=== PATIENT | female | born 1950 | race Caucasian/White ===

== ENCOUNTER 2022-11-22 21:35 | Inpatient (IN) | payer OTHER ==
[~2022-11-22] VITALS: Ht 160 cm; Wt 56.7 kg
[2022-11-22] MEDS ORDERED: PEPCID AC20 MG PO (22:05)
--- NOTE | 2022-11-22 22:09 | NUR ---
SE RECIBE PTE ALERTA ORIENTADA X3 CON REFERIDO MEDICO DE DR.MORALES WOODSON PARA ADMISION DIRECTA POR DX DE ANEMIA.SE PHIL S/V Y SE UBICA.
[2022-11-25] MEDS ORDERED: PEPCID AC20 MG PO (17:41)
[2022-11-25] MEDS ORDERED: SPIRONOLACTONE50 MG PO (17:41)
[2022-11-25] MEDS ORDERED: PANTOPRAZOLE SO40 MG PO (17:42)
[2022-11-25] MEDS ORDERED: PEPTO-BISM262 MG/15 PO (17:43)
[2022-11-25] MEDS ORDERED: MAXFE CAPLET1 EAC1 PO (17:45)
== END 2022-11-25 18:31 | disposition home or self-care (01) | DRG 812 ==
LOC: ER 21:35 → EDBD 23:30 → SEC-K 23:30 → SURH 11-23 18:24
PROVIDERS: ADMIT Internal Medicine Hematology & Oncology; ATTEND Internal Medicine Hematology & Oncology
PROC: BW21ZZZ Computerized Tomography (CT Scan) of Abdomen and Pelvis (ICD-10-PCS; 2022-11-22)
PROC: B54DZZZ Ultrasonography of Bilateral Lower Extremity Veins (ICD-10-PCS; 2022-11-22)
PROC: 30233N1 Transfusion of Nonautologous Red Blood Cells into Peripheral Vein, Percutaneous Approach (ICD-10-PCS; principal; 2022-11-23)
DX: D64.9 Anemia, unspecified (principal); C16.2 Malignant neoplasm of body of stomach; A04.8 Other specified bacterial intestinal infections; D63.0 Anemia in neoplastic disease; E86.0 Dehydration

== ENCOUNTER 2023-02-23 22:30 | Inpatient (IN) | payer OTHER ==
[~2023-02-23] VITALS: Ht 160 cm; Wt 47.6 kg
[~2023-02-23 22:30] MED LIST: MAXFE CAPLET1 EAC1 PO; PANTOPRAZOLE SO40 MG PO; PEPCID AC20 MG PO; PEPTO-BISM262 MG/15 PO; SPIRONOLACTONE50 MG PO
--- NOTE | 2023-02-23 22:45 | NUR ---
PTE SE OBSERVA A/O X4. PTE VERBALIZA QUE VIENE PPOR ORDEN DEL DR ALLY WOODSON DEBIDO A ADVANCED GASTRIC CARCINOMA, SEVERE SYMPTOMATIC ANEMIA OF BLOOD LOST.
--- NOTE | 2023-02-24 00:30 | NUR ---
SE EDUCA PACIENTE SOBRE EL [place] MEDICO Y ESTA REFIER ENTENDER. SE CANALIZA X3 Y SE COLOCA IVF Y SE ADMINITRAN MEDS. SE PHIL MUESTRAS DE [place] Y SE ENVIAN. SE ENTREGA POTE DE ORINA. SE ENTRAN ORDENES DE ADMISION.
--- NOTE | 2023-02-24 00:50 | NUR ---
PACIENTE TRAJO FIRMADO EL PAPEL DE TRANSFUCION
== END 2023-02-25 14:52 | disposition home or self-care (01) | DRG 375 ==
LOC: ER 22:30 → SURH 02-24 00:07
PROVIDERS: ADMIT Internal Medicine Hematology & Oncology; ATTEND Internal Medicine Hematology & Oncology
PROC: 30233N1 Transfusion of Nonautologous Red Blood Cells into Peripheral Vein, Percutaneous Approach (ICD-10-PCS; principal; 2023-02-24)
DX: C16.2 Malignant neoplasm of body of stomach (principal); A04.8 Other specified bacterial intestinal infections; E44.0 Moderate protein-calorie malnutrition; E86.0 Dehydration; Z20.822 Contact with and (suspected) exposure to COVID-19; D63.0 Anemia in neoplastic disease

== ENCOUNTER 2023-04-06 18:49 | Inpatient (IN) | payer OTHER ==
[~2023-04-06] VITALS: Ht 160 cm; Wt 54.4 kg
--- NOTE | 2023-04-06 19:22 | NUR ---
SE RECIBE PTE ALERTA Y ORIENTADA X3 LA CUAL REFIERE TENER DOLOR ABDOMINAL, NAUSEAS Y DEBILIDAD
--- NOTE | 2023-04-06 21:07 | NUR ---
PACIENTE EVALUADA POR DR BADILLO QUIEN ORDENA TRATAMIENTO MEDICO, CHUYITA VIDES LE ORIENTA A PACIENTE SOBRE EL MISMO Y VERBALIZA ENTENDER VALERIO PACIENTE REHUSA SER CANALIZADA Y QUE LE COLOQUEN EL IV FLUIDS, SE LE ORIENTA SOBRE LA IMPORTANCIA DEL MISMO Y LA MISMA REHUSA. LE COLECTA MUESTRAS BAJO MEDIDAS ASEPTICAS.SE MANTIENE PACIENTE EN ESPERA DE RESULTADOS
--- NOTE | 2023-04-07 00:11 | NUR ---
SE REQUISAN DOS UNIDADES PRBCS COMPLETAS. SE RACHEL CONSENTIMIENTO DE TRANSFUCION FIRMADO POR PACIENTE Y DR. BADILLO. PERSONAL DE [place] INDICA QUE EL PACIENTE TIENE RECORD Y QUE SOLO HAY QUE MAU DOS TUBOS. SE KELSEY COPIAS D E LOS PAPELES DE LA REQUISICION EN EL RECORD DEL PACIENTE
== END 2023-04-09 11:31 | disposition home or self-care (01) | DRG 375 ==
LOC: ER 18:49 → MEDI 23:33
PROVIDERS: ADMIT Internal Medicine; ATTEND Internal Medicine
PROC: BW21ZZZ Computerized Tomography (CT Scan) of Abdomen and Pelvis (ICD-10-PCS; 2023-04-06)
PROC: 30233N1 Transfusion of Nonautologous Red Blood Cells into Peripheral Vein, Percutaneous Approach (ICD-10-PCS; principal; 2023-04-07)
DX: C16.2 Malignant neoplasm of body of stomach (principal); C78.7 Secondary malignant neoplasm of liver and intrahepatic bile duct; E44.0 Moderate protein-calorie malnutrition; E86.0 Dehydration; Z20.822 Contact with and (suspected) exposure to COVID-19; D63.0 Anemia in neoplastic disease

== ENCOUNTER 2023-05-07 11:55 | Inpatient (IN) | payer OTHER ==
[~2023-05-07] VITALS: Ht 160 cm; Wt 51.7 kg
--- NOTE | 2023-05-07 14:05 | NUR ---
PTE EVALUADA POR EL DR SAMUELS QUIENN ORDENA EL [place]. MR Jannie FANG OIRENTA SOBRE EL [place] ORDENADO, LO CUAL REFIERE ENTENDER, REALIZA PRUEBAS DE LABORATORIO Y ADMINISTRA MEDICAMENTOS [place] ORDEN MEDICA Y SIGUIENDO MEDIDAS ASEPTICAS.
--- NOTE | 2023-05-07 15:48 | NUR ---
SE RECIBE PACIENTE DEL TURNO ANTERIOR LA MISMA SE ENCUENTRA ALERTA Y ORIENTADA X3, SE LE ORIENTA A LA MISMA SOBRE CONTINUIDAD DE TRATAMIENTO Y VERBALIZA ENTENDER. SE OBSERVA PACIENTE EN CAMA CON BARANDAS ELEVADAS POR PRECAUCION A CAIDAS. SE OBSERVA PACIENTE RECIBIENDO IV FLUIDS [place] ORDEN. PENDIENTE ENTREGA DE U/A.
== END 2023-05-13 22:00 | disposition home or self-care (01) | DRG 392 ==
LOC: ER 11:55 → SEC-K 17:29 → MEDI 17:29
PROVIDERS: ADMIT Internal Medicine Hematology & Oncology; ATTEND Internal Medicine Hematology & Oncology
PROC: 8E0ZXY6 Isolation (ICD-10-PCS; principal; 2023-05-07)
DX: K29.00 Acute gastritis without bleeding (principal); E46 Unspecified protein-calorie malnutrition; C16.2 Malignant neoplasm of body of stomach; D64.81 Anemia due to antineoplastic chemotherapy; Z68.20 Body mass index [BMI] 20.0-20.9, adult; D53.0 Protein deficiency anemia; B96.81 Helicobacter pylori [H. pylori] as the cause of diseases classified elsewhere

== ENCOUNTER 2023-07-03 15:57 | Inpatient (IN) | payer OTHER ==
[~2023-07-03] VITALS: Ht 160 cm; Wt 47.6 kg
--- NOTE | 2023-07-03 16:43 | NUR ---
PACIENTE ALERTA Y ORIENTADA X [address] ALLY WOODSON PARA ADMISION POR NIVELES DE HEMOGLOBINA EN 7.8 Y HEMATOCRITO EN 23.1 DEL 07/01/23.
== END 2023-07-06 19:44 | disposition home or self-care (01) | DRG 812 ==
LOC: ER 15:57 → EDSTATUS 17:23 → MEDI 17:26 → SURH 17:27 → MEDJ 17:59 → SURH 18:19
PROVIDERS: ADMIT Internal Medicine Hematology & Oncology; ATTEND Internal Medicine Hematology & Oncology
PROC: 8E0ZXY6 Isolation (ICD-10-PCS; 2023-07-03)
PROC: 30233N1 Transfusion of Nonautologous Red Blood Cells into Peripheral Vein, Percutaneous Approach (ICD-10-PCS; principal; 2023-07-04)
DX: D64.81 Anemia due to antineoplastic chemotherapy (principal); C16.2 Malignant neoplasm of body of stomach; K92.1 Melena; Z68.1 Body mass index [BMI] 19.9 or less, adult; D63.0 Anemia in neoplastic disease; D53.0 Protein deficiency anemia

== ENCOUNTER 2023-07-24 19:04 | Emergency (ER) | payer OTHER ==
[~2023-07-24] VITALS: Ht 160 cm; Wt 40.8 kg
[2023-07-24] MEDS ORDERED: CARAFATE1 GM/10 ML (19:47)
[2023-07-24] MEDS ORDERED: PEPCID AC20 MG (19:47)
[2023-07-24] MEDS ORDERED: PROTONIX20 MG (19:47)
== END 2023-07-24 23:02 | disposition home or self-care (01) ==
LOC: ER 19:04
PROVIDERS: General Practice
DX: C16.9 Malignant neoplasm of stomach, unspecified (principal); D64.9 Anemia, unspecified; Z20.822 Contact with and (suspected) exposure to COVID-19; Z91.041 Radiographic dye allergy status; Z91.013 Allergy to seafood

== ENCOUNTER 2023-08-12 14:12 | Inpatient (IN) | payer OTHER ==
[~2023-08-12] VITALS: Ht 162.6 cm; Wt 54.4 kg
[~2023-08-12 14:12] MED LIST changes: +CARAFATE1 GM/10 ML; +PEPCID AC20 MG; +PROTONIX20 MG
--- NOTE | 2023-08-12 14:41 | NUR ---
PTE ALERTA Y ORIENTADA X3, REFIERE TENER ULCERAS SANGRANTES Y REFIERE HACE JÚNIOR SEMANA LA HEMOGLOBINA ESTABA EN 8.8. PTE DEL DR. WOODSON. SE PHIL SV Y SE UBICA. PTE REFIERE SENTIRSE DEBIL.
--- NOTE | 2023-08-12 16:53 | NUR ---
SE PHIL MUESTRAS DE LABORAOTRIO Y SE ENVIAN
[2023-08-12 17:23] LABS: MEAN CELL VOLUME 91.5 fL (80.00-100.00); MEAN CORPUSCULAR HGB CONC 34.7 g/dl (32.0-36.0); PLATELET COUNT 470 K/uL (150-450); RED BLOOD COUNT 2.49 M/uL (4.00-6.00)
[2023-08-12 17:35] LABS: INR 1.04; PARTIAL THROMBOPLASTIN TIME 22.8 SECONDS (22.0-34.0); PROTHROMBIN TIME 10.9 SECONDS (9.0-11.5)
[2023-08-12 17:45] LABS: HEMATOCRIT 22.8 % (36.0-45.00); MEAN CORPUSCULAR HEMOGLOBIN 31.7 pg (27.00-32.0)
[2023-08-12 17:46] LABS: HEMOGLOBIN 7.9 g/dL (12.0-15.00)
[2023-08-12 17:54] LABS: ALBUMIN 1.5 gm/dL (3.4-5.0); BILIRUBIN TOTAL 0.38 mg/dL (0.3-1.2); CALCIUM 7.6 mg/dL (8.5-10.1); CREATININE SERUM 0.48 mg/dL (0.55-1.02); GFR 127.13; GLOBULINA 3.2 G/DL (2.4-3.5); POTASSIUM 4.61 mEq/L (3.5-5.1); TOTAL PROTEIN 4.7 gm/dL (6.4-8.2)
--- NOTE | 2023-08-12 18:49 | NUR ---
SE REQUISA DOS UNIDADES [place] POR ORDEN MEDICA. PACIENTE FIRMA CONSENTIMIENTO DE TRANSFUCION. PERSONAL DE [place] DE [employer] INDICA QUE EL PACIENTE TIENE RECORD DEL PACIENTE
[2023-08-12 22:27] LABS: CKMB 1.4 NG/ML (0.5-3.6)
[2023-08-12 22:36] LABS: ABG PH 7.458 (7.35-7.45); ABG PO2 96.2 mmHg (80-100); ABG pCO2 33.3 mmHg (35-45); BASE EXCESS -0.1 mmol/l; SaO2 97.9 %; Tco2 24.1 mmol/l; allen test SATISFACTORY; o2 21 %; puncture site RADIAL RIGHT
[2023-08-13 12:21] LABS: INR 1.05; PARTIAL THROMBOPLASTIN TIME 25.9 SECONDS (22.0-34.0)
[2023-08-13 12:29] LABS: CKMB 1.5 NG/ML (0.5-3.6)
[2023-08-13 12:59] LABS: ALBUMIN 1.5 gm/dL (3.4-5.0); BILIRUBIN TOTAL 0.27 mg/dL (0.3-1.2); BILIRUBIN,CONJUGATED 0.16 mg/dL (0.0-0.2); BILIRUBIN,UNCONJUGATED 0.11 mg/dL (0.0-0.6); CALCIUM 7.6 mg/dL (8.5-10.1); CHOL HDL RATIO 3.4 (0-5.0); CREATININE SERUM 0.58 mg/dL (0.55-1.02); GFR 102.19; GLOBULINA 3.4 G/DL (2.4-3.5); POTASSIUM 3.51 mEq/L (3.5-5.1); TOTAL PROTEIN 4.9 gm/dL (6.4-8.2)
[2023-08-13 14:22] LABS: C-REACTIVE PROTEIN 1.91 MG/DL (0.00-0.29)
[2023-08-14 22:16] LABS: HEMOGLOBIN 11.5 g/dL (12.0-15.00); MEAN CELL VOLUME 91.1 fL (80.00-100.00); MEAN CORPUSCULAR HEMOGLOBIN 30.7 pg (27.00-32.0); MEAN CORPUSCULAR HGB CONC 33.7 g/dl (32.0-36.0); PLATELET COUNT 434 K/uL (150-450); RED BLOOD COUNT 3.73 M/uL (4.00-6.00); RED CELL DISTRIBUTION WIDTH 15.8 % (11.5-14.5)
[2023-08-15] MEDS ORDERED: FAMOTIDINE20 MG PO (10:54)
[2023-08-15] MEDS ORDERED: LASIX20 MG PO (10:56)
[2023-08-16 08:00] LABS: HEMATOCRIT 31.4 % (36.0-45.00); HEMOGLOBIN 10.5 g/dL (12.0-15.00); MEAN CELL VOLUME 91.3 fL (80.00-100.00); MEAN CORPUSCULAR HEMOGLOBIN 30.6 pg (27.00-32.0); MEAN CORPUSCULAR HGB CONC 33.5 g/dl (32.0-36.0); PLATELET COUNT 421 K/uL (150-450); RED BLOOD COUNT 3.44 M/uL (4.00-6.00); RED CELL DISTRIBUTION WIDTH 15.4 % (11.5-14.5)
[2023-08-17 12:30] LABS: HEMATOCRIT 46.2 % (36.0-45.00); HEMOGLOBIN 15.6 g/dL (12.0-15.00); MEAN CORPUSCULAR HEMOGLOBIN 30.4 pg (27.00-32.0); MEAN CORPUSCULAR HGB CONC 33.7 g/dl (32.0-36.0); PLATELET COUNT 414 K/uL (150-450); RED BLOOD COUNT 5.13 M/uL (4.00-6.00); RED CELL DISTRIBUTION WIDTH 15.7 % (11.5-14.5)
[2023-08-18 08:12] LABS: HEMATOCRIT 38.3 % (36.0-45.00); HEMOGLOBIN 13.1 g/dL (12.0-15.00); MEAN CELL VOLUME 89.9 fL (80.00-100.00); MEAN CORPUSCULAR HEMOGLOBIN 30.7 pg (27.00-32.0); MEAN CORPUSCULAR HGB CONC 34.1 g/dl (32.0-36.0); PLATELET COUNT 285 K/uL (150-450); RED BLOOD COUNT 4.26 M/uL (4.00-6.00); RED CELL DISTRIBUTION WIDTH 15.3 % (11.5-14.5)
== END 2023-08-18 14:02 | disposition home or self-care (01) | DRG 375 ==
LOC: ER 14:12 → SEC-K 22:11 → SURH 22:11
PROVIDERS: Emergency Medicine; General Practice; ADMIT Internal Medicine Hematology & Oncology; ATTEND Internal Medicine Hematology & Oncology
PROC: 30233N1 Transfusion of Nonautologous Red Blood Cells into Peripheral Vein, Percutaneous Approach (ICD-10-PCS; principal; 2023-08-13)
DX: C16.2 Malignant neoplasm of body of stomach (principal); D62 Acute posthemorrhagic anemia; E44.0 Moderate protein-calorie malnutrition; E86.0 Dehydration; D63.0 Anemia in neoplastic disease; Z20.822 Contact with and (suspected) exposure to COVID-19

== ENCOUNTER 2023-08-28 11:01 | Emergency (ER) | payer OTHER ==
[~2023-08-28] VITALS: Ht 160 cm; Wt 53.5 kg
[~2023-08-28 11:01] MED LIST changes: +FAMOTIDINE20 MG PO; +LASIX20 MG PO
[2023-08-28] MEDS ORDERED: PROTONIX20 MG PO (11:20)
[2023-08-28] MEDS ORDERED: CARAFATE1 GM PO (11:21)
[2023-08-28 12:34] LABS: HEMATOCRIT 33.5 % (36.0-45.00); HEMOGLOBIN 11.6 g/dL (12.0-15.00); MEAN CELL VOLUME 89.8 fL (80.00-100.00); MEAN CORPUSCULAR HGB CONC 34.5 g/dl (32.0-36.0); PLATELET COUNT 406 K/uL (150-450); RED BLOOD COUNT 3.73 M/uL (4.00-6.00); RED CELL DISTRIBUTION WIDTH 15.2 % (11.5-14.5)
[2023-08-28 12:54] LABS: ALBUMIN 1.6 gm/dL (3.4-5.0); BILIRUBIN TOTAL 0.48 mg/dL (0.3-1.2); CALCIUM 7.8 mg/dL (8.5-10.1); CREATININE SERUM 0.66 mg/dL (0.55-1.02); GFR 87.79; GLOBULINA 3.4 G/DL (2.4-3.5); POTASSIUM 4.44 mEq/L (3.5-5.1)
== END 2023-08-28 19:29 | disposition home or self-care (01) ==
LOC: ER 11:01
PROVIDERS: General Practice
DX: C16.9 Malignant neoplasm of stomach, unspecified (principal)

== ENCOUNTER 2023-08-30 12:57 | Emergency (ER) | payer OTHER ==
[~2023-08-30] VITALS: Ht 160 cm; Wt 53.5 kg
[~2023-08-30 12:57] MED LIST changes: +CARAFATE1 GM PO; +PROTONIX20 MG PO
[2023-08-30 16:37] LABS: HEMATOCRIT 29.9 % (36.0-45.00); HEMOGLOBIN 10.4 g/dL (12.0-15.00); MEAN CELL VOLUME 90.2 fL (80.00-100.00); MEAN CORPUSCULAR HEMOGLOBIN 31.3 pg (27.00-32.0); MEAN CORPUSCULAR HGB CONC 34.7 g/dl (32.0-36.0); PLATELET COUNT 346 K/uL (150-450); RED BLOOD COUNT 3.31 M/uL (4.00-6.00); RED CELL DISTRIBUTION WIDTH 15.5 % (11.5-14.5)
[2023-08-30 17:01] LABS: ALBUMIN 1.4 gm/dL (3.4-5.0); BILIRUBIN TOTAL 0.37 mg/dL (0.3-1.2); BILIRUBIN,CONJUGATED 0.23 mg/dL (0.0-0.2); BILIRUBIN,UNCONJUGATED 0.14 mg/dL (0.0-0.6); CALCIUM 7.4 mg/dL (8.5-10.1); CREATININE SERUM 0.72 mg/dL (0.55-1.02); GFR 79.4; POTASSIUM 3.92 mEq/L (3.5-5.1); TOTAL PROTEIN 4.4 gm/dL (6.4-8.2)
== END 2023-08-30 19:42 ==
LOC: ER 12:57
PROVIDERS: Nurse Practitioner Family
DX: C16.9 Malignant neoplasm of stomach, unspecified (principal)

== ENCOUNTER 2023-09-10 13:29 | Inpatient (IN) | payer OTHER ==
[~2023-09-10] VITALS: Ht 160 cm; Wt 45.4 kg
[2023-09-10 15:56] LABS: MEAN CELL VOLUME 94.2 fL (80.00-100.00); MEAN CORPUSCULAR HGB CONC 34.3 g/dl (32.0-36.0); PLATELET COUNT 423 K/uL (150-450); RED BLOOD COUNT 2.24 M/uL (4.00-6.00); RED CELL DISTRIBUTION WIDTH 18.4 % (11.5-14.5)
[2023-09-10 16:03] LABS: HEMATOCRIT 21.1 % (36.0-45.00); MEAN CORPUSCULAR HEMOGLOBIN 32.1 pg (27.00-32.0)
[2023-09-10 16:04] LABS: HEMOGLOBIN 7.2 g/dL (12.0-15.00)
[2023-09-10 16:28] LABS: ALBUMIN 1.4 gm/dL (3.4-5.0); BILIRUBIN TOTAL 0.4 mg/dL (0.3-1.2); BILIRUBIN,CONJUGATED 0.22 mg/dL (0.0-0.2); BILIRUBIN,UNCONJUGATED 0.18 mg/dL (0.0-0.6); CALCIUM 7.8 mg/dL (8.5-10.1); CREATININE SERUM 0.65 mg/dL (0.55-1.02); GFR 89.35; POTASSIUM 4.72 mEq/L (3.5-5.1); TOTAL PROTEIN 4.1 gm/dL (6.4-8.2)
[2023-09-10 19:41] LABS: INR 1.01; PARTIAL THROMBOPLASTIN TIME 22.6 SECONDS (22.0-34.0); PROTHROMBIN TIME 10.6 SECONDS (9.0-11.5)
[2023-09-10 20:42] LABS: PH,URINE 5.5 (5.0-8.0); URINE APPEARANCE Cloudy; URINE BILIRRUBIN Negative (NEGATIVE); URINE BLOOD Negative; URINE COLOR Yellow; URINE GLUCOSE Negative (NEGATIVE); URINE LEUKOCYTE Small; URINE NITRATE Negative; URINE PROTEIN Trace (NEGATIVE)
[2023-09-10 20:46] LABS: URINE BACTERIA 143.6 uL (0.0-1933); URINE EPITHELIAL CELLS 16.8 uL (0.0-38.8); URINE RBC 30.6 uL (0.0-20.8); URINE WBC 62.4 uL (0.0-23.2)
[2023-09-10 21:22] LABS: URINE CRYSTALS MANY /HPF
[2023-09-12 11:26] LABS: HEMATOCRIT 31.3 % (36.0-45.00); HEMOGLOBIN 10.9 g/dL (12.0-15.00); MEAN CELL VOLUME 93.4 fL (80.00-100.00); MEAN CORPUSCULAR HEMOGLOBIN 32.6 pg (27.00-32.0); MEAN CORPUSCULAR HGB CONC 34.9 g/dl (32.0-36.0); PLATELET COUNT 359 K/uL (150-450); RED BLOOD COUNT 3.35 M/uL (4.00-6.00); RED CELL DISTRIBUTION WIDTH 16.3 % (11.5-14.5)
== END 2023-09-12 21:29 | disposition home or self-care (01) | DRG 812 ==
LOC: ER 13:30 → MEDJ 19:09
PROVIDERS: Emergency Medicine; General Practice; ADMIT Specialist; ATTEND Specialist
PROC: 4A12X4Z Monitoring of Cardiac Electrical Activity, External Approach (ICD-10-PCS; principal; 2023-09-11)
PROC: 30233N1 Transfusion of Nonautologous Red Blood Cells into Peripheral Vein, Percutaneous Approach (ICD-10-PCS; 2023-09-11)
DX: D64.89 Other specified anemias (principal); K92.2 Gastrointestinal hemorrhage, unspecified; A04.8 Other specified bacterial intestinal infections; C16.9 Malignant neoplasm of stomach, unspecified

== ENCOUNTER 2023-09-13 10:35 | Emergency (ER) | payer OTHER ==
[~2023-09-13] VITALS: Ht 160 cm; Wt 53.5 kg
[2023-09-13 13:31] LABS: HEMATOCRIT 28.7 % (36.0-45.00); HEMOGLOBIN 9.8 g/dL (12.0-15.00); MEAN CELL VOLUME 94.2 fL (80.00-100.00); MEAN CORPUSCULAR HEMOGLOBIN 32.3 pg (27.00-32.0); MEAN CORPUSCULAR HGB CONC 34.3 g/dl (32.0-36.0); PLATELET COUNT 336 K/uL (150-450); RED BLOOD COUNT 3.04 M/uL (4.00-6.00); RED CELL DISTRIBUTION WIDTH 17.4 % (11.5-14.5)
[2023-09-13 14:06] LABS: CALCIUM 7.6 mg/dL (8.5-10.1); CREATININE SERUM 0.76 mg/dL (0.55-1.02); GFR 74.6; POTASSIUM 4.24 mEq/L (3.5-5.1)
== END 2023-09-13 15:54 | disposition left against medical advice (07) ==
LOC: ER 10:35
PROVIDERS: General Practice
DX: G62.9 Polyneuropathy, unspecified (principal); C16.9 Malignant neoplasm of stomach, unspecified; C78.7 Secondary malignant neoplasm of liver and intrahepatic bile duct; Z91.041 Radiographic dye allergy status; Z91.013 Allergy to seafood

== ENCOUNTER 2023-09-18 14:44 | Inpatient (IN) | payer OTHER ==
[~2023-09-18] VITALS: Ht 162.6 cm; Wt 59.0 kg
[2023-09-18 18:13] LABS: INR 1.04; PARTIAL THROMBOPLASTIN TIME 25.7 SECONDS (22.0-34.0); PROTHROMBIN TIME 10.9 SECONDS (9.0-11.5)
[2023-09-18 18:20] LABS: ALBUMIN 1.2 gm/dL (3.4-5.0); BILIRUBIN TOTAL 0.57 mg/dL (0.3-1.2); CALCIUM 7.7 mg/dL (8.5-10.1); CREATININE SERUM 0.7 mg/dL (0.55-1.02); GFR 82.02; GLOBULINA 2.7 G/DL (2.4-3.5); POTASSIUM 5.3 mEq/L (3.5-5.1); TOTAL PROTEIN 3.9 gm/dL (6.4-8.2)
[2023-09-18 18:27] LABS: ALBUMIN 1.2 gm/dL (3.4-5.0); BILIRUBIN TOTAL 0.59 mg/dL (0.3-1.2); BILIRUBIN,CONJUGATED 0.33 mg/dL (0.0-0.2); BILIRUBIN,UNCONJUGATED 0.26 mg/dL (0.0-0.6); TOTAL PROTEIN 3.9 gm/dL (6.4-8.2)
[2023-09-18 18:37] LABS: MEAN CELL VOLUME 97.1 fL (80.00-100.00); MEAN CORPUSCULAR HGB CONC 33.6 g/dl (32.0-36.0); PLATELET COUNT 422 K/uL (150-450); RED BLOOD COUNT 2.37 M/uL (4.00-6.00); RED CELL DISTRIBUTION WIDTH 19.5 % (11.5-14.5)
[2023-09-18 18:40] LABS: MEAN CORPUSCULAR HEMOGLOBIN 32.4 pg (27.00-32.0)
[2023-09-18 18:41] LABS: HEMOGLOBIN 7.7 g/dL (12.0-15.00)
[2023-09-19 19:52] LABS: URINE APPEARANCE Clear; URINE BILIRRUBIN Negative (NEGATIVE); URINE BLOOD Negative; URINE COLOR Dark Yellow; URINE GLUCOSE Negative (NEGATIVE); URINE LEUKOCYTE Trace; URINE NITRATE Negative; URINE PROTEIN 30 (NEGATIVE)
[2023-09-19 19:56] LABS: URINE BACTERIA 293.5 uL (0.0-1933); URINE RBC 9.9 uL (0.0-20.8); URINE WBC 34.7 uL (0.0-23.2)
[2023-09-20 18:46] LABS: CREA PERITONEAL FLUID 0.86 mg/dl; TP PERITONEAL FLUID 1.2 g/dl
== END 2023-09-27 19:13 | DRG 374 ==
LOC: ER 14:44 → SURH 21:34
PROVIDERS: General Practice; Nurse Practitioner Family; Radiology Vascular & Interventional Radiology; ADMIT Specialist; ATTEND Specialist
PROC: BW40ZZZ Ultrasonography of Abdomen (ICD-10-PCS; 2023-09-18)
PROC: 0W9G3ZZ Drainage of Peritoneal Cavity, Percutaneous Approach (ICD-10-PCS; principal; 2023-09-20)
PROC: 30233N1 Transfusion of Nonautologous Red Blood Cells into Peripheral Vein, Percutaneous Approach (ICD-10-PCS; 2023-09-20)
DX: C78.89 Secondary malignant neoplasm of other digestive organs (principal); L89.154 Pressure ulcer of sacral region, stage 4; R18.0 Malignant ascites; N39.0 Urinary tract infection, site not specified; C16.2 Malignant neoplasm of body of stomach; R64 Cachexia; E46 Unspecified protein-calorie malnutrition; C78.7 Secondary malignant neoplasm of liver and intrahepatic bile duct; K72.90 Hepatic failure, unspecified without coma; D64.89 Other specified anemias; K59.00 Constipation, unspecified; D63.0 Anemia in neoplastic disease; K25.9 Gastric ulcer, unspecified as acute or chronic, without hemorrhage or perforation; Z74.01 Bed confinement status; L08.89 Other specified local infections of the skin and subcutaneous tissue; B95.61 Methicillin susceptible Staphylococcus aureus infection as the cause of diseases classified elsewhere; B96.29 Other Escherichia coli [E. coli] as the cause of diseases classified elsewhere; B96.89 Other specified bacterial agents as the cause of diseases classified elsewhere; Z53.29 Procedure and treatment not carried out because of patient's decision for other reasons